=== PATIENT | female | born 1975 | race Caucasian/White ===

== ENCOUNTER 2017-02-08 12:49 | Inpatient (IN) | payer BC ==
--- NOTE | 2017-02-08 11:23 | PCM.PREANE ---
Preanesthetic Assessment - Anesthesia/Transfusion/Family Hx Anesthesia History: Prior Anesthesia Without Reaction Family History of Anesthesia Reaction: No Transfusion History: No Prior Transfusion(s) - Review of Systems General: Malaise Pulmonary: No Symptoms Cardiovascular: No Symptoms Gastrointestinal: Abdominal pain, Nausea Neurological: No Symptoms Other: Reports: Liver Problems ("auto-immune hepatitis in remission"), Thyroid Problems - Physical Assessment NPO Status Date: 02/07/17 NPO Status Time: 00:00 Pulse: 108 O2 Sat by Pulse Oximetry: 98 Respiratory Rate: 20 Blood Pressure: 128/91 Temperature: 37.2 C Height: 1.63 m Weight: 81.647 kg ASA Class: 2E Mental Status: Alert & Oriented x3 Airway Class: Mallampati = 2 Dentition: Reports: Normal Dentition Thyro-Mental Finger Breadths: 3 Mouth Opening Finger Breadths: 2 ROM/Head Extension: Full Lungs: Clear to auscultation, Normal respiratory effort Cardiovascular: Regular Rate, Regular Rhythm, No Murmurs - Allergies Allergies/Adverse Reactions: Allergies Allergy/AdvReac Type Severity Reaction Status Date / Time acetaminophen [From Tylenol] Allergy Other Verified 11/28/14 10:35 - Anesthesia Plan Pre-Op Medication Ordered: None - Acknowledgements Anesthesia Type Planned: General Anesthesia Pt an Appropriate Candidate for the Planned Anesthesia: Yes Alternatives and Risks of Anesthesia Discussed w Pt/Guardian: Yes Pt/Guardian Understands and Agrees with Anesthesia Plan: Yes PreAnesthesia Questionnaire - SUBSTANCE USE Smoking Status *Q: Unknown Ever Smoked Tobacco Use Within Last Twelve Months: No Second Hand Smoke Exposure: No Days Per Week of Alcohol Use: 0 Number of Drinks Per Day: 1 Total Drinks Per Week: 0 Recreational Drug Use History: No - HOME MEDS Home Medications: Home Meds . [No Known Home Meds] 11/28/14 [History] - CURRENT (IN HOUSE) MEDS Current Meds: Current Medications Cefoxitin Sodium 2 gm/ Premix 50 mls @ 100 mls/hr IV ONETIME ONE Stop: 02/08/17 11:59
[~2017-02-08 12:49] MED LIST: Bupivacaine 0.5%/EPINEPHrine 1:200,000 50 ML MDV INJECT ONE; Ketorolac 30 MG/ML SDV ONE; Lactated Ringers 1,000 ML IV SCH; Lactated Ringers 1,000 ML ONE; Lidocaine 1% with EPINEPHrine 1:100,000 20 ML MDV INJECT ONE; Lidocaine 1%/Sod Bicarbonate in NS 8.4% 1 ML Syringe PRN; Midazolam 1 MG/ML 2 ML SDV ONE; Neostigmine Methylsulfate 10 MG/10 ML MDV ONE; Ondansetron 4 MG/2 ML SDV ONE; Propofol 200 MG/20 ML SDV ONE; Rocuronium 50 MG/5 ML Vial ONE; Scopolamine 1.5 MG Transdermal Patch TOP ONE; Sodium Chloride 0.9% 10 ML Syringe FLUSH PRN; cefOXitin 2 GM in Premix Bag 1 BAG IV ONE; fentaNYL 100 MCG/2 ML SDV IVPUSH PRN; fentaNYL 250 MCG/5 ML SDV ONE
--- NOTE | 2017-02-08 12:49 | PCM.POSTAN ---
POST ANESTHESIA ASSESSMENT - MENTAL STATUS Mental Status: alert, oriented - VITAL SIGNS Pulse Rate: 97 SaO2: 96 Resp Rate: 11 Blood Pressure: 104/80 Temperature: 36.9 C - RESPIRATORY Respiratory Status: respiratory rate WNL, airway patent, O2 saturation stable, supplemental oxygen - CARDIOVASCULAR CV Status: pulse rate WNL, blood pressure stable - GASTROINTESTINAL GI Status: no symptoms - PAIN Pain Score: 0 - POST OP HYDRATION Hydration Status: adequate & stable - OBSERVATIONS Free Text/Narrative:: no anesthesia complications noted
[2017-02-08] MEDS ORDERED: Ketorolac 15 MG/ML SDV IM PRN (12:50)
--- NOTE | 2017-02-08 12:50 | PCM.OPNOTE ---
- General Post-Op/Procedure Note Date of Surgery/Procedure: 02/08/17 Operative Procedure(s): Laparoscopic appendectomy Findings: Acutely inflamed, distended appendix with suppuration in the right lower quadrant. There was a fecalith that fell into the field after stapling spilling a small amount of fecal contents in the area. Pre Op Diagnosis: Acute appendicitis -- delayed presentation Post-Op Diagnosis: Same Anesthesia Technique: General ET tube, Local Primary Surgeon: Ravindra Samaniego Pathology: Appendix EBL in mLs: 3 Complications: None Condition: Good Free Text/Narrative:: After adequate general endotracheal tube anesthesia was obtained the patient's abdomen was prepped and draped in the usual fashion for a laparoscopic appendectomy. A supraumbilical incision was made after local analgesia followed by insertion of a 12 mm camera port. CO2 pneumoperitoneum was obtained. A 5 mm working port was placed in the suprapubic region and in the left lower quadrant after local analgesia. Exploration revealed the findings above. I teased away some mesenteric fat away from the base of the appendix. I then made a window in the meso appendix with the Endo Lexie. I fired the stapler across the base of the appendix and for some reason the fecalith fell out of the appendix spilling a small amount of fecal contents. This was quickly aspirated from the field with irrigation. I fired another load across the base of the appendix to reinforce the appendiceal base. After copiously irrigating out the feel with saline I fired across the appendiceal mesentery and removed the specimen in an Endo Catch through the umbilicus. The area was hemostatic. The fecalith, which was about 6 mm in size was removed by aspiration. The abdomen was decannulated under direct vision with no bleeding from the port sites. I closed the 12 mm camera site with interrupted 0 Vicryl [id number]. The subcutaneous tissues and skin were closed with Vicryl as well. Steri-Strips and gauze were used for the dressing. Insurance Inspector photographs were taken for the patient and for the record.
[2017-02-08] MEDS: Ondansetron 4 MG/2 ML SDV IVPUSH PRN ×2 (13:17→18:12)
[2017-02-08] MEDS ORDERED: Metoclopramide 10 MG/2 ML SDV IVPUSH SCH (13:45)
[2017-02-08] MEDS: Sodium Chloride 0.9% 1,000 ML IV SCH (17:59)
[2017-02-08] MEDS: HYDROmorphone 0.5 MG/0.5 ML Syringe IVPUSH PRN (18:02)
[2017-02-08] MEDS: cefOXitin 2 GM in Premix Bag 1 BAG IV SCH ×2 (18:07→22:37)
[2017-02-08] MEDS: Metoclopramide 10 MG/2 ML SDV IVPUSH PRN (22:32)
[2017-02-09] MEDS: Sodium Chloride 0.9% 1,000 ML IV SCH (04:50)
[2017-02-09] MEDS: cefOXitin 2 GM in Premix Bag 1 BAG IV SCH ×4 (04:50→23:57)
[2017-02-09] MEDS: Pantoprazole 40 MG Tab.CR PO SCH (06:01)
[2017-02-09] MEDS: Ibuprofen 600 MG Tab PO PRN ×3 (07:48→20:51)
[2017-02-09] MEDS ORDERED: Sodium Chloride 0.9% 10 ML Syringe FLUSH PRN (07:56)
--- NOTE | 2017-02-09 08:00 | PCM.SURGPN ---
- General Info Date of Service: 02/09/17 POD#: 1 Functional Status: Reports: pain controlled, tolerating diet, ambulating, urinating - Review of Systems Gastrointestinal: Reports: Nausea, Other (crampy upper abdonial pain, mild nausea) - Patient Data Vitals - most recent: Last Vital Signs Temp 36.9 C 02/09/17 07:48 Pulse 93 02/09/17 06:07 Resp 16 02/09/17 06:07 BP 108/66 02/09/17 06:07 Pulse Ox 93 L 02/09/17 06:07 Weight - most recent: 98.157 kg I&O - last 24 hours: Intake & Output 02/08/17 02/09/17 02/09/17 22:59 06:59 14:59 Intake Total 320 1890 Output Total 1175 Balance 320 715 Lab Results last 24 hrs: Laboratory Results - last 24 hr 02/09/17 Range/Units 05:02 WBC 13.78 H (3.98-10.04) K/mm3 RBC 3.87 L (3.98-5.22) M/mm3 Hgb 11.4 (11.2-15.7) gm/L Hct 34.3 (34.1-44.9) % MCV 88.6 (79.4-94.8) fl MCH 29.5 (25.6-32.2) pg MCHC 33.2 (32.2-35.5) g/dl RDW Std Deviation 44.1 (36.4-46.3) fL Plt Count 202 (182-369) K/mm3 MPV 11.3 (9.4-12.3) fl Neut % (Auto) 83.2 H (34.0-71.1) % Lymph % (Auto) 10.4 L (19.3-51.7) % [place] % (Auto) 6.2 (4.7-12.5) % Eos % (Auto) 0 L (0.7-5.8) Baso % (Auto) 0.1 (0.1-1.2) % Neut # (Auto) 11.45 H (1.56-6.13) K/mm3 Lymph # (Auto) 1.44 (1.18-3.74) K/mm3 [place] # (Auto) 0.86 H (0.24-0.36) K/mm3 Eos # (Auto) 0.00 L (0.04-0.36) K/mm3 Baso # (Auto) 0.01 (0.01-0.08) K/mm3 Med Orders - Current: Current Medications Hydromorphone HCl (Dilaudid) 0.5 mg IVPUSH Q1H PRN PRN Reason: Pain (severe 7-10) Last Admin: 02/08/17 18:02 Dose: 0.5 mg Cefoxitin Sodium 2 gm/ Premix 50 mls @ 100 mls/hr IV Q6H [facility] Last Admin: 02/09/17 04:50 Dose: 100 mls/hr Ibuprofen (Motrin) 600 mg PO Q6H PRN PRN Reason: Fever Last Admin: 02/09/17 07:48 Dose: 600 mg Metoclopramide HCl (Reglan) 5 mg IVPUSH Q6H PRN PRN Reason: Nausea Last Admin: 02/08/17 22:32 Dose: 5 mg Ondansetron HCl (Zofran) 4 mg IVPUSH Q6H PRN PRN Reason: Nausea/Vomiting Last Admin: 02/08/17 18:12 Dose: 4 mg Pantoprazole Sodium (Protonix) 40 mg PO DAILY@0700 [facility] Last Admin: 02/09/17 06:01 Dose: Not Given Sodium Chloride (Saline Flush) 10 ml FLUSH ASDIRECTED PRN PRN Reason: Keep Vein Open Discontinued Medications Fentanyl (Sublimaze) Confirm Administered Dose 250 mcg .ROUTE .STK-MED ONE Stop: 02/08/17 11:41 Fentanyl (Sublimaze) 50 mcg IVPUSH Q5M PRN PRN Reason: PAIN Stop: 02/08/17 18:00 Glycopyrrolate () Confirm Administered Dose 2 mg .ROUTE .STK-MED ONE Stop: 02/08/17 12:29 Cefoxitin Sodium 2 gm/ Premix 50 mls @ 100 mls/hr IV ONETIME ONE Stop: 02/08/17 11:59 Last Admin: 02/08/17 11:30 Dose: 100 mls/hr Lactated Ringer's (Ringers, Lactated) 1,000 mls @ 125 mls/hr IV ASDIRECTED [facility] Stop: 02/08/17 23:00 Last Admin: 02/08/17 11:30 Dose: 125 mls/hr Lactated Ringer's (Ringers, Lactated) Confirm Administered Dose 1,000 mls @ as directed .ROUTE .STK-MED ONE Stop: 02/08/17 12:31 Sodium Chloride (Normal Saline) 1,000 mls @ 125 mls/hr IV ASDIRECTED [facility]FAELA Last Admin: 02/09/17 04:50 Dose: 125 mls/hr Ketorolac Tromethamine (Toradol) Confirm Administered Dose 30 mg .ROUTE .STK- MED ONE Stop: 02/08/17 12:34 Ketorolac Tromethamine (Toradol) 15 mg IM Q6H PRN PRN Reason: Pain Stop: 02/09/17 07:01 Last Admin: 02/08/17 22:32 Dose: 15 mg Lidocaine/Sodium Bicarbonate (Buffered Lidocaine 1% In Ns 8.4%) 0.25 ml .XX ONETIME PRN PRN Reason: Prior to IV Start Stop: 02/08/17 18:00 Metoclopramide HCl (Reglan) 10 mg IVPUSH ONETIME [facility]FAELA Stop: 02/08/17 23:59 Last Admin: 02/08/17 13:46 Dose: 10 mg Midazolam HCl (Versed 1 Mg/Ml) Confirm Administered Dose 2 mg .ROUTE .STK-MED ONE Stop: 02/08/17 11:41 Neostigmine Methylsulfate (Neostigmine Methylsulfate) Confirm Administered Dose 10 mg .ROUTE .STK-MED ONE Stop: 02/08/17 12:29 Ondansetron HCl (Zofran) Confirm Administered Dose 4 mg .ROUTE .STK-MED ONE Stop: 02/08/17 11:41 Propofol (Diprivan 20 Ml) Confirm Administered Dose 200 mg .ROUTE .STK-MED ONE Stop: 02/08/17 11:41 Rocuronium [place] (Zemuron) Confirm Administered Dose 50 mg .ROUTE .STK-MED ONE Stop: 02/08/17 11:41 Scopolamine (Transderm-Scop) 1.5 mg TOP ONETIME ONE Stop: 02/08/17 11:31 Last Admin: 02/08/17 11:38 Dose: 1.5 mg Sodium Chloride (Saline Flush) 10 ml FLUSH ASDIRECTED PRN PRN Reason: Keep Vein Open Stop: 02/08/17 18:00 - Exam Wound/Incisions: dressing dry and intact Abdomen: soft, no tenderness, no distension - Problem List Review Problem List Initiated/Reviewed/Updated: Yes - My Orders Last 24 Hours: Active Orders 24 hr Category Date Time Status Patient Status [ADT] Routine ADT 02/08/17 12:50 Active Ambulate [RC] ASDIRECTED Care 02/08/17 12:50 Active Cooling Warming Measures [RC] ASDIRECTED Care 02/08/17 12:48 Active Head of Bed Elevation [RC] ASDIRECTED Care 02/08/17 12:51 Active Notify Provider [RC] ASDIRECTED Care 02/08/17 12:48 Active Oxygen Therapy [RC] PRN Care 02/08/17 12:50 Active Peripheral IV Care [RC] Q2HR Care 02/08/17 11:19 Active RT Incentive Spirometry [RC] Q1HWA Care 02/08/17 12:50 Active Up ad Ale [RC] ASDIRECTED Care 02/08/17 12:50 Active Up to Chair [RC] ASDIRECTED Care 02/08/17 12:50 Active Verify Patient Consent Obtain [RC] ASDIRECTED Care 02/08/17 11:19 Active Vital Signs [RC] Q4HR Care 02/08/17 12:50 Active Regular Diet [DIET] Diet 02/08/17 Dinner Active HYDROmorphone [Dilaudid] Med 02/08/17 12:50 Active 0.5 mg IVPUSH Q1H PRN Ibuprofen [Motrin] Med 02/08/17 21:42 Active 600 mg PO Q6H PRN Metoclopramide [Reglan] Med 02/08/17 21:40 Active 5 mg IVPUSH Q6H PRN Ondansetron [Zofran] Med 02/08/17 12:50 Active 4 mg IVPUSH Q6H PRN Pantoprazole [ProTONIX] Med 02/09/17 07:00 Active 40 mg PO DAILY@0700 Sodium Chloride 0.9% [Saline Flush] Med 02/09/17 07:56 Ordered 10 ml FLUSH ASDIRECTED PRN cefOXitin [Mefoxin in Dextrose,Iso-Osm 2 GM/50 ML] 2 gm Med 02/08/17 17:30 Active Premix Bag 1 bag IV Q6H Medication Administration Instruction [OM.PC] Routine Oth 02/08/17 11:19 Ordered Peripheral IV Discontinue [OM.PC] Routine Oth 02/09/17 07:55 Ordered Peripheral IV Insertion Adult [OM.PC] Routine Oth 02/08/17 11:19 Ordered Saline Lock Insert [OM.PC] Routine Oth 02/09/17 07:56 Ordered Resuscitation Status Routine Resus Stat 02/08/17 12:50 Ordered Medication Orders Hydromorphone HCl (Dilaudid) 0.5 mg IVPUSH Q1H PRN PRN Reason: Pain (severe 7-10) Last Admin: 02/08/17 18:02 Dose: 0.5 mg Cefoxitin Sodium 2 gm/ Premix 50 mls @ 100 mls/hr IV Q6H [facility] Last Admin: 02/09/17 04:50 Dose: 100 mls/hr Infusion: 02/08/17 23:07 Dose: 100 mls/hr Admin: 02/08/17 22:37 Dose: 100 mls/hr Infusion: 02/08/17 18:37 Dose: 100 mls/hr Admin: 02/08/17 18:07 Dose: 100 mls/hr Ibuprofen (Motrin) 600 mg PO Q6H PRN PRN Reason: Fever Last Admin: 02/09/17 07:48 Dose: 600 mg Metoclopramide HCl (Reglan) 5 mg IVPUSH Q6H PRN PRN Reason: Nausea Last Admin: 02/08/17 22:32 Dose: 5 mg Ondansetron HCl (Zofran) 4 mg IVPUSH Q6H PRN PRN Reason: Nausea/Vomiting Last Admin: 02/08/17 18:12 Dose: 4 mg Admin: 02/08/17 13:17 Dose: 4 mg Pantoprazole Sodium (Protonix) 40 mg PO DAILY@0700 [facility] Last Admin: 02/09/17 06:01 Dose: Not Given Sodium Chloride (Saline Flush) 10 ml FLUSH ASDIRECTED PRN PRN Reason: Keep Vein Open - Assessment Assessment (Free Text/Narrative):: imp: Stable. WBC 13K. - Plan Plan (Free Text/Narrative):: plan: IV antibiotics. Perhaps home by Tuesday AM. See orders.
--- NOTE | 2017-02-09 08:22 | PCM48HPAN ---
Post Anesthesia Note - EVALUATION WITHIN 48HRS OF ANESTHETIC Vital Signs in Normal Range: Yes Patient Participated in Evaluation: Yes Respiratory Function Stable: Yes Airway Patent: Yes Cardiovascular Function Stable: Yes Hydration Status Stable: Yes Pain Control Satisfactory: Yes (taking po meds) Nausea and Vomiting Control Satisfactory: Yes Mental Status Recovered: Yes
[2017-02-09] MEDS: HYDROmorphone 0.5 MG/0.5 ML Syringe IVPUSH PRN (11:47)
[2017-02-09] MEDS: Ondansetron 4 MG/2 ML SDV IVPUSH PRN ×2 (14:36→20:51)
[2017-02-09] MEDS: Metoclopramide 10 MG/2 ML SDV IVPUSH PRN (18:51)
[2017-02-10] MEDS: Ibuprofen 600 MG Tab PO PRN ×3 (03:53→23:31)
[2017-02-10] MEDS: cefOXitin 2 GM in Premix Bag 1 BAG IV SCH ×4 (05:39→23:22)
[2017-02-10] MEDS: Pantoprazole 40 MG Tab.CR PO SCH ×2 (05:39→06:06)
[2017-02-10] MEDS: HYDROmorphone 0.5 MG/0.5 ML Syringe IVPUSH PRN (06:19)
[2017-02-10] MEDS: Metoclopramide 10 MG/2 ML SDV IVPUSH PRN ×2 (06:19→12:09)
[2017-02-10] MEDS ORDERED: Magnesium Hydroxide 400 MG/5 ML Susp 30 ML Cup PO PRN (08:00)
--- NOTE | 2017-02-10 08:06 | PCM.SURGPN ---
- General Info Date of Service: 02/10/17 POD#: 2 Functional Status: Reports: pain controlled, tolerating diet, ambulating, urinating - Review of Systems HEENT: Reports: headaches (which was present before surgery) Gastrointestinal: Reports: Abdominal pain (but less than yesterday), Constipation, Flatus - Patient Data Vitals - most recent: Last Vital Signs Temp 36.8 C 02/10/17 07:44 Pulse 65 02/10/17 07:44 Resp 14 02/10/17 07:44 BP 117/67 02/10/17 07:44 Pulse Ox 96 02/10/17 07:44 Weight - most recent: 97.205 kg I&O - last 24 hours: Intake & Output 02/09/17 02/10/17 02/10/17 22:59 06:59 14:59 Intake Total 1130 550 Output Total 1900 700 Balance -770 -150 Med Orders - Current: Current Medications Hydromorphone HCl (Dilaudid) 0.5 mg IVPUSH Q1H PRN PRN Reason: Pain (severe 7-10) Last Admin: 02/10/17 06:19 Dose: 0.5 mg Cefoxitin Sodium 2 gm/ Premix 50 mls @ 100 mls/hr IV Q6H RAFAELA Last Admin: 02/10/17 05:39 Dose: 100 mls/hr Ibuprofen (Motrin) 600 mg PO Q6H PRN PRN Reason: Fever Last Admin: 02/10/17 03:53 Dose: 600 mg Magnesium Hydroxide (Milk Of Magnesia) 30 ml PO BID PRN PRN Reason: constipatiion Metoclopramide HCl (Reglan) 5 mg IVPUSH Q6H PRN PRN Reason: Nausea Last Admin: 02/10/17 06:19 Dose: 5 mg Ondansetron HCl (Zofran) 4 mg IVPUSH Q6H PRN PRN Reason: Nausea/Vomiting Last Admin: 02/09/17 20:51 Dose: 4 mg Pantoprazole Sodium (Protonix) 40 mg PO DAILY@0700 [facility] Last Admin: 02/10/17 06:06 Dose: Not Given Sodium Chloride (Saline Flush) 10 ml FLUSH ASDIRECTED PRN PRN Reason: Keep Vein Open Discontinued Medications Bupivacaine HCl/Epinephrine [place] (Marcaine 0.5%/Epinephrine 1:200,000) 0 ml INJECT ONETIME ONE Stop: 02/08/17 11:20 Last Admin: 02/08/17 11:55 Dose: 10 ml Fentanyl (Sublimaze) Confirm Administered Dose 250 mcg .ROUTE .STK-MED ONE Stop: 02/08/17 11:41 Fentanyl (Sublimaze) 50 mcg IVPUSH Q5M PRN PRN Reason: PAIN Stop: 02/08/17 18:00 Glycopyrrolate () Confirm Administered Dose 2 mg .ROUTE .STK-MED ONE Stop: 02/08/17 12:29 Cefoxitin Sodium 2 gm/ Premix 50 mls @ 100 mls/hr IV ONETIME ONE Stop: 02/08/17 11:59 Last Admin: 02/08/17 11:30 Dose: 100 mls/hr Lactated Ringer's (Ringers, Lactated) 1,000 mls @ 125 mls/hr IV ASDIRECTED [facility] Stop: 02/08/17 23:00 Last Admin: 02/08/17 11:30 Dose: 125 mls/hr Lactated Ringer's (Ringers, Lactated) Confirm Administered Dose 1,000 mls @ as directed .ROUTE .STK-MED ONE Stop: 02/08/17 12:31 Sodium Chloride (Normal Saline) 1,000 mls @ 125 mls/hr IV ASDIRECTED [facility] Last Admin: 02/09/17 04:50 Dose: 125 mls/hr Ketorolac Tromethamine (Toradol) Confirm Administered Dose 30 mg .ROUTE .STK- MED ONE Stop: 02/08/17 12:34 Ketorolac Tromethamine (Toradol) 15 mg IM Q6H PRN PRN Reason: Pain Stop: 02/09/17 07:01 Last Admin: 02/08/17 22:32 Dose: 15 mg Lidocaine/Epinephrine (Xylocaine 1% With Epinephrine 1:100,000) 0 ml INJECT ONETIME ONE Stop: 02/08/17 11:20 Last Admin: 02/08/17 11:55 Dose: 10 ml Lidocaine/Sodium Bicarbonate (Buffered Lidocaine 1% In Ns 8.4%) 0.25 ml .XX ONETIME PRN PRN Reason: Prior to IV Start Stop: 02/08/17 18:00 Metoclopramide HCl (Reglan) 10 mg IVPUSH ONETIME [facility] Stop: 02/08/17 23:59 Last Admin: 02/08/17 13:46 Dose: 10 mg Midazolam HCl (Versed 1 Mg/Ml) Confirm Administered Dose 2 mg .ROUTE .STK-MED ONE Stop: 02/08/17 11:41 Neostigmine Methylsulfate (Neostigmine Methylsulfate) Confirm Administered Dose 10 mg .ROUTE .STK-MED ONE Stop: 02/08/17 12:29 Ondansetron HCl (Zofran) Confirm Administered Dose 4 mg .ROUTE .STK-MED ONE Stop: 02/08/17 11:41 Propofol (Diprivan 20 Ml) Confirm Administered Dose 200 mg .ROUTE .STK-MED ONE Stop: 02/08/17 11:41 Rocuronium [place] (Zemuron) Confirm Administered Dose 50 mg .ROUTE .STK-MED ONE Stop: 02/08/17 11:41 Scopolamine (Transderm-Scop) 1.5 mg TOP ONETIME ONE Stop: 02/08/17 11:31 Last Admin: 02/08/17 11:38 Dose: 1.5 mg Sodium Chloride (Saline Flush) 10 ml FLUSH ASDIRECTED PRN PRN Reason: Keep Vein Open Stop: 02/08/17 18:00 - Exam Wound/Incisions: dressing dry and intact Abdomen: no tenderness - Problem List Review Problem List Initiated/Reviewed/Updated: Yes - My Orders Last 24 Hours: Active Orders 24 hr Category Date Time Status Antiembolic Devices [RC] PER UNIT ROUTINE Care 02/09/17 10:04 Active May Shower [RC] ASDIRECTED Care 02/10/17 07:59 Ordered CBC WITH AUTO DIFF [HEME] Routine Lab 02/10/17 08:01 Ordered Magnesium Hydroxide [Milk of Magnesia] Med 02/10/17 08:00 Ordered 30 ml PO BID PRN Sodium Chloride 0.9% [Saline Flush] Med 02/09/17 07:56 Active 10 ml FLUSH ASDIRECTED PRN Peripheral IV Discontinue [OM.PC] Routine Oth 02/09/17 07:55 Ordered Remove Dressing [OM.PC] Routine Oth 02/10/17 07:59 Ordered Saline Lock Insert [OM.PC] Routine Oth 02/09/17 07:56 Ordered DWAYNE Hose [Antiembolic Hose] [OM.PC] Routine Oth 02/09/17 10:04 Ordered Medication Orders Hydromorphone HCl (Dilaudid) 0.5 mg IVPUSH Q1H PRN PRN Reason: Pain (severe 7-10) Last Admin: 02/10/17 06:19 Dose: 0.5 mg Admin: 02/09/17 11:47 Dose: 0.5 mg Admin: 02/08/17 18:02 Dose: 0.5 mg Cefoxitin Sodium 2 gm/ Premix 50 mls @ 100 mls/hr IV Q6H RAFAELA Last Admin: 02/10/17 05:39 Dose: 100 mls/hr Infusion: 02/10/17 00:27 Dose: 100 mls/hr Admin: 02/09/17 23:57 Dose: 100 mls/hr Infusion: 02/09/17 18:47 Dose: 100 mls/hr Admin: 02/09/17 18:17 Dose: 100 mls/hr Infusion: 02/09/17 12:14 Dose: 100 mls/hr Admin: 02/09/17 11:44 Dose: 100 mls/hr Infusion: 02/09/17 05:20 Dose: 100 mls/hr Admin: 02/09/17 04:50 Dose: 100 mls/hr Infusion: 02/08/17 23:07 Dose: 100 mls/hr Admin: 02/08/17 22:37 Dose: 100 mls/hr Infusion: 02/08/17 18:37 Dose: 100 mls/hr Admin: 02/08/17 18:07 Dose: 100 mls/hr Ibuprofen (Motrin) 600 mg PO Q6H PRN PRN Reason: Fever Last Admin: 02/10/17 03:53 Dose: 600 mg Admin: 02/09/17 20:51 Dose: 600 mg Admin: 02/09/17 14:37 Dose: 600 mg Admin: 02/09/17 07:48 Dose: 600 mg Magnesium Hydroxide (Milk Of Magnesia) 30 ml PO BID PRN PRN Reason: constipatiion Metoclopramide HCl (Reglan) 5 mg IVPUSH Q6H PRN PRN Reason: Nausea Last Admin: 02/10/17 06:19 Dose: 5 mg Admin: 02/09/17 18:51 Dose: 5 mg Admin: 02/08/17 22:32 Dose: 5 mg Ondansetron HCl (Zofran) 4 mg IVPUSH Q6H PRN PRN Reason: Nausea/Vomiting Last Admin: 02/09/17 20:51 Dose: 4 mg Admin: 02/09/17 14:36 Dose: 4 mg Admin: 02/08/17 18:12 Dose: 4 mg Admin: 02/08/17 13:17 Dose: 4 mg Pantoprazole Sodium (Protonix) 40 mg PO DAILY@0700 [facility] Last Admin: 02/10/17 06:06 Dose: Admin: 02/10/17 05:39 Dose: 40 mg Admin: 02/09/17 06:01 Dose: Not Given Sodium Chloride (Saline Flush) 10 ml FLUSH ASDIRECTED PRN PRN Reason: Keep Vein Open - Assessment Assessment (Free Text/Narrative):: improving - Plan Plan (Free Text/Narrative):: Shower today, and milk of magnesia for constipation. CBC in a.m.
[2017-02-10] MEDS: Ondansetron 4 MG/2 ML SDV IVPUSH PRN (09:28)
[2017-02-10] MEDS ORDERED: Ketorolac 30 MG/ML SDV IVPUSH PRN (17:44)
[2017-02-10] MEDS: Promethazine 25 MG in Sodium Chloride 0.9% 50 ML IV PRN (18:09)
[2017-02-11] MEDS: cefOXitin 2 GM in Premix Bag 1 BAG IV SCH ×4 (05:07→22:43)
[2017-02-11] MEDS: Pantoprazole 40 MG Tab.CR PO SCH ×2 (05:09→10:15)
[2017-02-11] MEDS: Ibuprofen 600 MG Tab PO PRN ×3 (05:12→20:18)
--- NOTE | 2017-02-11 11:19 | PCM.SURGPN ---
- General Info Date of Service: 02/11/17 POD#: 3 Functional Status: Reports: pain controlled, tolerating diet, ambulating, urinating - Review of Systems HEENT: Reports: headaches (these are chronic and have been with her for years. They are part of her low back pain syndrome) Musculoskeletal: Reports: back pain - Patient Data Vitals - most recent: Last Vital Signs Temp 37.1 C 02/11/17 08:00 Pulse 75 02/11/17 08:00 Resp 20 02/11/17 08:00 BP 117/65 02/11/17 08:00 Pulse Ox 98 02/11/17 08:00 Weight - most recent: 96.57 kg I&O - last 24 hours: Intake & Output 02/10/17 02/11/17 02/11/17 22:59 06:59 14:59 Intake Total 1050 1450 0 Output Total 1000 1400 Balance 50 50 0 Med Orders - Current: Current Medications Hydromorphone HCl (Dilaudid) 0.5 mg IVPUSH Q1H PRN PRN Reason: Pain (severe 7-10) Last Admin: 02/10/17 06:19 Dose: 0.5 mg Cefoxitin Sodium 2 gm/ Premix 50 mls @ 100 mls/hr IV Q6H [facility] Last Admin: 02/11/17 10:52 Dose: 100 mls/hr Promethazine HCl 25 mg/ Sodium (Chloride) 51 mls @ 100 mls/hr IV Q6H PRN PRN Reason: Nausea/Vomiting Last Admin: 02/10/17 18:09 Dose: 100 mls/hr Ibuprofen (Motrin) 600 mg PO Q6H PRN PRN Reason: Fever Last Admin: 02/11/17 05:12 Dose: 600 mg Ketorolac Tromethamine (Toradol) 30 mg IVPUSH Q6H PRN PRN Reason: Pain Last Admin: 02/10/17 18:09 Dose: 30 mg Magnesium Hydroxide (Milk Of Magnesia) 30 ml PO BID PRN PRN Reason: constipatiion Metoclopramide HCl (Reglan) 5 mg IVPUSH Q6H PRN PRN Reason: Nausea Last Admin: 02/10/17 12:09 Dose: 5 mg Ondansetron HCl (Zofran) 4 mg IVPUSH Q6H PRN PRN Reason: Nausea/Vomiting Last Admin: 02/10/17 09:28 Dose: 4 mg Pantoprazole Sodium (Protonix) 40 mg PO DAILY@0700 [facility] Last Admin: 02/11/17 10:15 Dose: Not Given Sodium Chloride (Saline Flush) 10 ml FLUSH ASDIRECTED PRN PRN Reason: Keep Vein Open Discontinued Medications Bupivacaine HCl/Epinephrine Bitart (Marcaine 0.5%/Epinephrine 1:200,000) 0 ml INJECT ONETIME ONE Stop: 02/08/17 11:20 Last Admin: 02/08/17 11:55 Dose: 10 ml Fentanyl (Sublimaze) Confirm Administered Dose 250 mcg .ROUTE .STK-MED ONE Stop: 02/08/17 11:41 Fentanyl (Sublimaze) 50 mcg IVPUSH Q5M PRN PRN Reason: PAIN Stop: 02/08/17 18:00 Glycopyrrolate () Confirm Administered Dose 2 mg .ROUTE .STK-MED ONE Stop: 02/08/17 12:29 Cefoxitin Sodium 2 gm/ Premix 50 mls @ 100 mls/hr IV ONETIME ONE Stop: 02/08/17 11:59 Last Admin: 02/08/17 11:30 Dose: 100 mls/hr Lactated Ringer's (Ringers, Lactated) 1,000 mls @ 125 mls/hr IV ASDIRECTED [facility] Stop: 02/08/17 23:00 Last Admin: 02/08/17 11:30 Dose: 125 mls/hr Lactated Ringer's (Ringers, Lactated) Confirm Administered Dose 1,000 mls @ as directed .ROUTE .STK-MED ONE Stop: 02/08/17 12:31 Sodium Chloride (Normal Saline) 1,000 mls @ 125 mls/hr IV ASDIRECTED [facility] Last Admin: 02/09/17 04:50 Dose: 125 mls/hr Ketorolac Tromethamine (Toradol) Confirm Administered Dose 30 mg .ROUTE .STK- MED ONE Stop: 02/08/17 12:34 Ketorolac Tromethamine (Toradol) 15 mg IM Q6H PRN PRN Reason: Pain Stop: 02/09/17 07:01 Last Admin: 02/08/17 22:32 Dose: 15 mg Lidocaine/Epinephrine (Xylocaine 1% With Epinephrine 1:100,000) 0 ml INJECT ONETIME ONE Stop: 02/08/17 11:20 Last Admin: 02/08/17 11:55 Dose: 10 ml Lidocaine/Sodium Bicarbonate (Buffered Lidocaine 1% In Ns 8.4%) 0.25 ml .XX ONETIME PRN PRN Reason: Prior to IV Start Stop: 02/08/17 18:00 Metoclopramide HCl (Reglan) 10 mg IVPUSH ONETIME [facility] Stop: 02/08/17 23:59 Last Admin: 02/08/17 13:46 Dose: 10 mg Midazolam HCl (Versed 1 Mg/Ml) Confirm Administered Dose 2 mg .ROUTE .STK-MED ONE Stop: 02/08/17 11:41 Neostigmine Methylsulfate (Neostigmine Methylsulfate) Confirm Administered Dose 10 mg .ROUTE .STK-MED ONE Stop: 02/08/17 12:29 Ondansetron HCl (Zofran) Confirm Administered Dose 4 mg .ROUTE .STK-MED ONE Stop: 02/08/17 11:41 Propofol (Diprivan 20 Ml) Confirm Administered Dose 200 mg .ROUTE .STK-MED ONE Stop: 02/08/17 11:41 Rocuronium [place] (Zemuron) Confirm Administered Dose 50 mg .ROUTE .STK-MED ONE Stop: 02/08/17 11:41 Scopolamine (Transderm-Scop) 1.5 mg TOP ONETIME ONE Stop: 02/08/17 11:31 Last Admin: 02/08/17 11:38 Dose: 1.5 mg Sodium Chloride (Saline Flush) 10 ml FLUSH ASDIRECTED PRN PRN Reason: Keep Vein Open Stop: 02/08/17 18:00 - Exam Wound/Incisions: dressing dry and intact Quality Assessment: skin breakdown General: oriented, cooperative Abdomen: soft, no tenderness, no distension - Problem List Review Problem List Initiated/Reviewed/Updated: Yes - My Orders Last 24 Hours: Active Orders 24 hr Category Date Time Status Ketorolac [Toradol] Med 02/10/17 17:44 Active 30 mg IVPUSH Q6H PRN Magnesium Citrate [Citrate of Magnesia] Med 02/11/17 11:17 Once See Dose Instructions PO ONETIME ONE Promethazine [Phenergan] 25 mg Med 02/10/17 17:42 Active Sodium Chloride 0.9% [Normal Saline] 50 ml IV Q6H Medication Orders Hydromorphone HCl (Dilaudid) 0.5 mg IVPUSH Q1H PRN PRN Reason: Pain (severe 7-10) Last Admin: 02/10/17 06:19 Dose: 0.5 mg Admin: 02/09/17 11:47 Dose: 0.5 mg Admin: 02/08/17 18:02 Dose: 0.5 mg Cefoxitin Sodium 2 gm/ Premix 50 mls @ 100 mls/hr IV Q6H [facility] Last Admin: 02/11/17 10:52 Dose: 100 mls/hr Infusion: 02/11/17 05:37 Dose: 100 mls/hr Admin: 02/11/17 05:07 Dose: 100 mls/hr Infusion: 02/10/17 23:52 Dose: 100 mls/hr Admin: 02/10/17 23:22 Dose: 100 mls/hr Infusion: 02/10/17 18:04 Dose: 100 mls/hr Admin: 02/10/17 17:34 Dose: 100 mls/hr Infusion: 02/10/17 11:13 Dose: 100 mls/hr Admin: 02/10/17 10:43 Dose: 100 mls/hr Infusion: 02/10/17 06:09 Dose: 100 mls/hr Admin: 02/10/17 05:39 Dose: 100 mls/hr Infusion: 02/10/17 00:27 Dose: 100 mls/hr Admin: 02/09/17 23:57 Dose: 100 mls/hr Infusion: 02/09/17 18:47 Dose: 100 mls/hr Admin: 02/09/17 18:17 Dose: 100 mls/hr Infusion: 02/09/17 12:14 Dose: 100 mls/hr Admin: 02/09/17 11:44 Dose: 100 mls/hr Infusion: 02/09/17 05:20 Dose: 100 mls/hr Admin: 02/09/17 04:50 Dose: 100 mls/hr Infusion: 02/08/17 23:07 Dose: 100 mls/hr Admin: 02/08/17 22:37 Dose: 100 mls/hr Infusion: 02/08/17 18:37 Dose: 100 mls/hr Admin: 02/08/17 18:07 Dose: 100 mls/hr Promethazine HCl 25 mg/ Sodium (Chloride) 51 mls @ 100 mls/hr IV Q6H PRN PRN Reason: Nausea/Vomiting Last Admin: 02/10/17 18:09 Dose: 100 mls/hr Ibuprofen (Motrin) 600 mg PO Q6H PRN PRN Reason: Fever Last Admin: 02/11/17 05:12 Dose: 600 mg Admin: 02/10/17 23:31 Dose: 600 mg Admin: 02/10/17 12:08 Dose: 600 mg Admin: 02/10/17 03:53 Dose: 600 mg Admin: 02/09/17 20:51 Dose: 600 mg Admin: 02/09/17 14:37 Dose: 600 mg Admin: 02/09/17 07:48 Dose: 600 mg Ketorolac Tromethamine (Toradol) 30 mg IVPUSH Q6H PRN PRN Reason: Pain Last Admin: 02/10/17 18:09 Dose: 30 mg Magnesium Hydroxide (Milk Of Magnesia) 30 ml PO BID PRN PRN Reason: constipatiion Metoclopramide HCl (Reglan) 5 mg IVPUSH Q6H PRN PRN Reason: Nausea Last Admin: 02/10/17 12:09 Dose: 5 mg Admin: 02/10/17 06:19 Dose: 5 mg Admin: 02/09/17 18:51 Dose: 5 mg Admin: 02/08/17 22:32 Dose: 5 mg Ondansetron HCl (Zofran) 4 mg IVPUSH Q6H PRN PRN Reason: Nausea/Vomiting Last Admin: 02/10/17 09:28 Dose: 4 mg Admin: 02/09/17 20:51 Dose: 4 mg Admin: 02/09/17 14:36 Dose: 4 mg Admin: 02/08/17 18:12 Dose: 4 mg Admin: 02/08/17 13:17 Dose: 4 mg Pantoprazole Sodium (Protonix) 40 mg PO DAILY@0700 [facility] Last Admin: 02/11/17 10:15 Dose: Not Given Admin: 02/11/17 05:09 Dose: 40 mg Admin: 02/10/17 06:06 Dose: Admin: 02/10/17 05:39 Dose: 40 mg Admin: 02/09/17 06:01 Dose: Not Given Sodium Chloride (Saline Flush) 10 ml FLUSH ASDIRECTED PRN PRN Reason: Keep Vein Open - Assessment Assessment (Free Text/Narrative):: doing well - Plan Plan (Free Text/Narrative):: same
[2017-02-11] MEDS ORDERED: Promethazine 25 MG/ML SDV ONE (11:34)
[2017-02-11] MEDS ORDERED: Magnesium Citrate Solution 296 ML Bottle PO ONE (11:45)
[2017-02-11] MEDS: Promethazine 25 MG in Sodium Chloride 0.9% 50 ML IV PRN (11:58)
[2017-02-12] MEDS: Pantoprazole 40 MG Tab.CR PO SCH ×2 (05:41→06:58)
[2017-02-12] MEDS: cefOXitin 2 GM in Premix Bag 1 BAG IV SCH (05:41)
[2017-02-12 05:43] VITALS: BP 105/65
--- NOTE | 2017-02-12 06:31 | PCM.SURGPN ---
- General Info Functional Status: Reports: pain controlled, tolerating diet, ambulating, urinating - Review of Systems HEENT: Reports: headaches (improved) Gastrointestinal: Reports: No symptoms, Flatus, Other (many loose stools after magnesium citrate given yesterday) - Patient Data Vitals - most recent: Last Vital Signs Temp 36.9 C 02/12/17 03:00 Pulse 74 02/12/17 03:00 Resp 14 02/12/17 03:00 BP 105/65 02/12/17 03:00 Pulse Ox 96 02/12/17 03:00 Weight - most recent: 96.298 kg I&O - last 24 hours: Intake & Output 02/11/17 02/11/17 02/12/17 14:59 22:59 06:59 Intake Total 240 1080 100 Output Total 500 Balance 240 580 100 Med Orders - Current: Current Medications Hydromorphone HCl (Dilaudid) 0.5 mg IVPUSH Q1H PRN PRN Reason: Pain (severe 7-10) Last Admin: 02/10/17 06:19 Dose: 0.5 mg Cefoxitin Sodium 2 gm/ Premix 50 mls @ 100 mls/hr IV Q6H [facility]A Last Admin: 02/12/17 05:41 Dose: 100 mls/hr Promethazine HCl 25 mg/ Sodium (Chloride) 51 mls @ 100 mls/hr IV Q6H PRN PRN Reason: Nausea/Vomiting Last Admin: 02/11/17 11:58 Dose: 100 mls/hr Ibuprofen (Motrin) 600 mg PO Q6H PRN PRN Reason: Fever Last Admin: 02/11/17 20:18 Dose: 600 mg Ketorolac Tromethamine (Toradol) 30 mg IVPUSH Q6H PRN PRN Reason: Pain Last Admin: 02/10/17 18:09 Dose: 30 mg Magnesium Hydroxide (Milk Of Magnesia) 30 ml PO BID PRN PRN Reason: constipatiion Metoclopramide HCl (Reglan) 5 mg IVPUSH Q6H PRN PRN Reason: Nausea Last Admin: 02/10/17 12:09 Dose: 5 mg Ondansetron HCl (Zofran) 4 mg IVPUSH Q6H PRN PRN Reason: Nausea/Vomiting Last Admin: 02/10/17 09:28 Dose: 4 mg Pantoprazole Sodium (Protonix) 40 mg PO DAILY@0700 [facility] Last Admin: 02/12/17 05:41 Dose: 40 mg Sodium Chloride (Saline Flush) 10 ml FLUSH ASDIRECTED PRN PRN Reason: Keep Vein Open Discontinued Medications Bupivacaine HCl/Epinephrine Bitart (Marcaine 0.5%/Epinephrine 1:200,000) 0 ml INJECT ONETIME ONE Stop: 02/08/17 11:20 Last Admin: 02/08/17 11:55 Dose: 10 ml Fentanyl (Sublimaze) Confirm Administered Dose 250 mcg .ROUTE .STK-MED ONE Stop: 02/08/17 11:41 Fentanyl (Sublimaze) 50 mcg IVPUSH Q5M PRN PRN Reason: PAIN Stop: 02/08/17 18:00 Glycopyrrolate () Confirm Administered Dose 2 mg .ROUTE .STK-MED ONE Stop: 02/08/17 12:29 Cefoxitin Sodium 2 gm/ Premix 50 mls @ 100 mls/hr IV ONETIME ONE Stop: 02/08/17 11:59 Last Admin: 02/08/17 11:30 Dose: 100 mls/hr Lactated Ringer's (Ringers, Lactated) 1,000 mls @ 125 mls/hr IV ASDIRECTED [facility] Stop: 02/08/17 23:00 Last Admin: 02/08/17 11:30 Dose: 125 mls/hr Lactated Ringer's (Ringers, Lactated) Confirm Administered Dose 1,000 mls @ as directed .ROUTE .STK-MED ONE Stop: 02/08/17 12:31 Sodium Chloride (Normal Saline) 1,000 mls @ 125 mls/hr IV ASDIRECTED [facility] Last Admin: 02/09/17 04:50 Dose: 125 mls/hr Ketorolac Tromethamine (Toradol) Confirm Administered Dose 30 mg .ROUTE .STK- MED ONE Stop: 02/08/17 12:34 Ketorolac Tromethamine (Toradol) 15 mg IM Q6H PRN PRN Reason: Pain Stop: 02/09/17 07:01 Last Admin: 02/08/17 22:32 Dose: 15 mg Lidocaine/Epinephrine (Xylocaine 1% With Epinephrine 1:100,000) 0 ml INJECT ONETIME ONE Stop: 02/08/17 11:20 Last Admin: 02/08/17 11:55 Dose: 10 ml Lidocaine/Sodium Bicarbonate (Buffered Lidocaine 1% In Ns 8.4%) 0.25 ml .XX ONETIME PRN PRN Reason: Prior to IV Start Stop: 02/08/17 18:00 Magnesium Citrate (Citrate Of Magnesia) 296 ml PO ONETIME ONE Stop: 02/11/17 11:46 Last Admin: 02/11/17 11:40 Dose: 296 ml Metoclopramide HCl (Reglan) 10 mg IVPUSH ONETIME [facility] Stop: 02/08/17 23:59 Last Admin: 02/08/17 13:46 Dose: 10 mg Midazolam HCl (Versed 1 Mg/Ml) Confirm Administered Dose 2 mg .ROUTE .STK-MED ONE Stop: 02/08/17 11:41 Neostigmine Methylsulfate (Neostigmine Methylsulfate) Confirm Administered Dose 10 mg .ROUTE .STK-MED ONE Stop: 02/08/17 12:29 Ondansetron HCl (Zofran) Confirm Administered Dose 4 mg .ROUTE .STK-MED ONE Stop: 02/08/17 11:41 Promethazine HCl (Phenergan) Confirm Administered Dose 25 mg .ROUTE .STK-MED ONE Stop: 02/11/17 11:35 Last Admin: 02/11/17 12:02 Dose: Not Given Propofol (Diprivan 20 Ml) Confirm Administered Dose 200 mg .ROUTE .STK-MED ONE Stop: 02/08/17 11:41 Rocuronium [place] (Zemuron) Confirm Administered Dose 50 mg .ROUTE .STK-MED ONE Stop: 02/08/17 11:41 Scopolamine (Transderm-Scop) 1.5 mg TOP ONETIME ONE Stop: 02/08/17 11:31 Last Admin: 02/08/17 11:38 Dose: 1.5 mg Sodium Chloride (Saline Flush) 10 ml FLUSH ASDIRECTED PRN PRN Reason: Keep Vein Open Stop: 02/08/17 18:00 - Exam Abdomen: soft, no tenderness, no distension - Problem List & Annotations (1) Appendicitis, acute, with peritonitis SNOMED Code(s): 671972174 Code(s): K35.3 - ACUTE APPENDICITIS WITH LOCALIZED PERITONITIS Status: Resolved Priority: High Current Visit: Yes - Problem List Review Problem List Initiated/Reviewed/Updated: Yes - My Orders Last 24 Hours: Active Orders 24 hr Category Date Time Status Ready for Discharge [RC] PER UNIT ROUTINE Care 02/12/17 06:30 Ordered Medication Orders Hydromorphone HCl (Dilaudid) 0.5 mg IVPUSH Q1H PRN PRN Reason: Pain (severe 7-10) Last Admin: 02/10/17 06:19 Dose: 0.5 mg Admin: 02/09/17 11:47 Dose: 0.5 mg Admin: 02/08/17 18:02 Dose: 0.5 mg Cefoxitin Sodium 2 gm/ Premix 50 mls @ 100 mls/hr IV Q6H [facility] Last Admin: 02/12/17 05:41 Dose: 100 mls/hr Infusion: 02/11/17 23:13 Dose: 100 mls/hr Admin: 02/11/17 22:43 Dose: 100 mls/hr Infusion: 02/11/17 17:56 Dose: 100 mls/hr Admin: 02/11/17 17:26 Dose: 100 mls/hr Infusion: 02/11/17 11:22 Dose: 100 mls/hr Admin: 02/11/17 10:52 Dose: 100 mls/hr Infusion: 02/11/17 05:37 Dose: 100 mls/hr Admin: 02/11/17 05:07 Dose: 100 mls/hr Infusion: 02/10/17 23:52 Dose: 100 mls/hr Admin: 02/10/17 23:22 Dose: 100 mls/hr Infusion: 02/10/17 18:04 Dose: 100 mls/hr Admin: 02/10/17 17:34 Dose: 100 mls/hr Infusion: 02/10/17 11:13 Dose: 100 mls/hr Admin: 02/10/17 10:43 Dose: 100 mls/hr Infusion: 02/10/17 06:09 Dose: 100 mls/hr Admin: 02/10/17 05:39 Dose: 100 mls/hr Infusion: 02/10/17 00:27 Dose: 100 mls/hr Admin: 02/09/17 23:57 Dose: 100 mls/hr Infusion: 02/09/17 18:47 Dose: 100 mls/hr Admin: 02/09/17 18:17 Dose: 100 mls/hr Infusion: 02/09/17 12:14 Dose: 100 mls/hr Admin: 02/09/17 11:44 Dose: 100 mls/hr Infusion: 02/09/17 05:20 Dose: 100 mls/hr Admin: 02/09/17 04:50 Dose: 100 mls/hr Infusion: 02/08/17 23:07 Dose: 100 mls/hr Admin: 02/08/17 22:37 Dose: 100 mls/hr Infusion: 02/08/17 18:37 Dose: 100 mls/hr Admin: 02/08/17 18:07 Dose: 100 mls/hr Promethazine HCl 25 mg/ Sodium (Chloride) 51 mls @ 100 mls/hr IV Q6H PRN PRN Reason: Nausea/Vomiting Last Admin: 02/11/17 11:58 Dose: 100 mls/hr Infusion: 02/10/17 18:40 Dose: 100 mls/hr Admin: 02/10/17 18:09 Dose: 100 mls/hr Ibuprofen (Motrin) 600 mg PO Q6H PRN PRN Reason: Fever Last Admin: 02/11/17 20:18 Dose: 600 mg Admin: 02/11/17 11:41 Dose: 600 mg Admin: 02/11/17 05:12 Dose: 600 mg Admin: 02/10/17 23:31 Dose: 600 mg Admin: 02/10/17 12:08 Dose: 600 mg Admin: 02/10/17 03:53 Dose: 600 mg Admin: 02/09/17 20:51 Dose: 600 mg Admin: 02/09/17 14:37 Dose: 600 mg Admin: 02/09/17 07:48 Dose: 600 mg Ketorolac Tromethamine (Toradol) 30 mg IVPUSH Q6H PRN PRN Reason: Pain Last Admin: 02/10/17 18:09 Dose: 30 mg Magnesium Hydroxide (Milk Of Magnesia) 30 ml PO BID PRN PRN Reason: constipatiion Metoclopramide HCl (Reglan) 5 mg IVPUSH Q6H PRN PRN Reason: Nausea Last Admin: 02/10/17 12:09 Dose: 5 mg Admin: 02/10/17 06:19 Dose: 5 mg Admin: 02/09/17 18:51 Dose: 5 mg Admin: 02/08/17 22:32 Dose: 5 mg Ondansetron HCl (Zofran) 4 mg IVPUSH Q6H PRN PRN Reason: Nausea/Vomiting Last Admin: 02/10/17 09:28 Dose: 4 mg Admin: 02/09/17 20:51 Dose: 4 mg Admin: 02/09/17 14:36 Dose: 4 mg Admin: 02/08/17 18:12 Dose: 4 mg Admin: 02/08/17 13:17 Dose: 4 mg Pantoprazole Sodium (Protonix) 40 mg PO DAILY@0700 [facility] Last Admin: 02/12/17 05:41 Dose: 40 mg Admin: 02/11/17 10:15 Dose: Not Given Admin: 02/11/17 05:09 Dose: 40 mg Admin: 02/10/17 06:06 Dose: Admin: 02/10/17 05:39 Dose: 40 mg Admin: 02/09/17 06:01 Dose: Not Given Sodium Chloride (Saline Flush) 10 ml FLUSH ASDIRECTED PRN PRN Reason: Keep Vein Open - Assessment Assessment (Free Text/Narrative):: ready for - Plan Plan (Free Text/Narrative):: discharge today
--- NOTE | 2017-02-12 06:34 | PCM.DCSUM1 ---
Discharge Summary - Hospital Course Free Text/Narrative:: This patient underwent an uncomplicated laparoscopic appendectomy. She had some local fecal contamination and was placed in the hospital for IV antibiotics. She remained afebrile and her white count fell towards normal. After a few days she met all discharge criteria and was discharged to home. She is to be continued on outpatient by mouth antibiotics. - Discharge Data Discharge Date: 02/12/17 Discharge Disposition: Home, Self-Care 01 Condition: Good - Discharge Diagnosis/Problem(s) (1) Appendicitis, acute, with peritonitis SNOMED Code(s): 286296488 ICD Code: K35.3 - ACUTE APPENDICITIS WITH LOCALIZED PERITONITIS Status: Resolved Priority: High Current Visit: Yes - Patient Summary/Data Operative Procedure(s) Performed: Laparoscopic appendectomy Complications: none Consults: none Recommended Follow-up Testing/Procedures: one week Planned Operative Procedure(s) after DC: none Hospital Course: See above. - Patient Instructions Diet: Usual Diet as Tolerated Activity: As Tolerated, Rest and Relax Today Driving: May Drive Today Showering/Bathing: May Shower Wound/Incision Care: Keep Operative Site/Wound Site Clean and Dry Notify Provider of: Fever, Increased Pain, Drainage - Discharge Plan Home Medications: Home Meds Esomeprazole Magnesium [Nexium 24Hr] 1 tab PO DAILY 02/08/17 [History] Ibuprofen [Motrin] 800 mg PO Q6H PRN 02/08/17 [History] Patient Handouts: Laparoscopic Appendectomy, Adult, Care After, [id number], Peritonitis Referrals: Ravindra Samaniego MD [Physician] - 02/17/17 (routine postop check, patient to call next week for appointment) - Discharge Summary/Plan Comment DC Time >30 min.: No Discharge Summary/Plan Comment: Postoperative instructions were explained verbally to the patient. She requested Phenergan for nausea. I will add this to her antibiotic regimen of Bactrim DS and Flagyl, which I will continue for 7 days. - Patient Data Vitals - Most Recent: Last Vital Signs Temp 36.9 C 02/12/17 03:00 Pulse 74 02/12/17 03:00 Resp 14 02/12/17 03:00 BP 105/65 02/12/17 03:00 Pulse Ox 96 02/12/17 03:00 Weight - Most Recent: 96.298 kg I&O - Last 24 hours: Intake & Output 02/11/17 02/11/17 02/12/17 14:59 22:59 06:59 Intake Total 240 1080 100 Output Total 500 Balance 240 580 100 Med Orders - Current: Current Medications Hydromorphone HCl (Dilaudid) 0.5 mg IVPUSH Q1H PRN PRN Reason: Pain (severe 7-10) Last Admin: 02/10/17 06:19 Dose: 0.5 mg Cefoxitin Sodium 2 gm/ Premix 50 mls @ 100 mls/hr IV Q6H [facility] Last Admin: 02/12/17 05:41 Dose: 100 mls/hr Promethazine HCl 25 mg/ Sodium (Chloride) 51 mls @ 100 mls/hr IV Q6H PRN PRN Reason: Nausea/Vomiting Last Admin: 02/11/17 11:58 Dose: 100 mls/hr Ibuprofen (Motrin) 600 mg PO Q6H PRN PRN Reason: Fever Last Admin: 02/11/17 20:18 Dose: 600 mg Ketorolac Tromethamine (Toradol) 30 mg IVPUSH Q6H PRN PRN Reason: Pain Last Admin: 02/10/17 18:09 Dose: 30 mg Magnesium Hydroxide (Milk Of Magnesia) 30 ml PO BID PRN PRN Reason: constipatiion Metoclopramide HCl (Reglan) 5 mg IVPUSH Q6H PRN PRN Reason: Nausea Last Admin: 02/10/17 12:09 Dose: 5 mg Ondansetron HCl (Zofran) 4 mg IVPUSH Q6H PRN PRN Reason: Nausea/Vomiting Last Admin: 02/10/17 09:28 Dose: 4 mg Pantoprazole Sodium (Protonix) 40 mg PO DAILY@0700 [facility] Last Admin: 02/12/17 05:41 Dose: 40 mg Sodium Chloride (Saline Flush) 10 ml FLUSH ASDIRECTED PRN PRN Reason: Keep Vein Open Discontinued Medications Bupivacaine HCl/Epinephrine Bitart (Marcaine 0.5%/Epinephrine 1:200,000) 0 ml INJECT ONETIME ONE Stop: 02/08/17 11:20 Last Admin: 02/08/17 11:55 Dose: 10 ml Fentanyl (Sublimaze) Confirm Administered Dose 250 mcg .ROUTE .STK-MED ONE Stop: 02/08/17 11:41 Fentanyl (Sublimaze) 50 mcg IVPUSH Q5M PRN PRN Reason: PAIN Stop: 02/08/17 18:00 Glycopyrrolate () Confirm Administered Dose 2 mg .ROUTE .ST-MED ONE Stop: 02/08/17 12:29 Cefoxitin Sodium 2 gm/ Premix 50 mls @ 100 mls/hr IV ONETIME ONE Stop: 02/08/17 11:59 Last Admin: 02/08/17 11:30 Dose: 100 mls/hr Lactated Ringer's (Ringers, Lactated) 1,000 mls @ 125 mls/hr IV ASDIRECTED [facility] Stop: 02/08/17 23:00 Last Admin: 02/08/17 11:30 Dose: 125 mls/hr Lactated Ringer's (Ringers, Lactated) Confirm Administered Dose 1,000 mls @ as directed .ROUTE .[facility] ONE Stop: 02/08/17 12:31 Sodium Chloride (Normal Saline) 1,000 mls @ 125 mls/hr IV ASDIRECTED [facility] Last Admin: 02/09/17 04:50 Dose: 125 mls/hr Ketorolac Tromethamine (Toradol) Confirm Administered Dose 30 mg .ROUTE .[facility] ONE Stop: 02/08/17 12:34 Ketorolac Tromethamine (Toradol) 15 mg IM Q6H PRN PRN Reason: Pain Stop: 02/09/17 07:01 Last Admin: 02/08/17 22:32 Dose: 15 mg Lidocaine/Epinephrine (Xylocaine 1% With Epinephrine 1:100,000) 0 ml INJECT ONETIME ONE Stop: 02/08/17 11:20 Last Admin: 02/08/17 11:55 Dose: 10 ml Lidocaine/Sodium Bicarbonate (Buffered Lidocaine 1% In Ns 8.4%) 0.25 ml .XX ONETIME PRN PRN Reason: Prior to IV Start Stop: 02/08/17 18:00 Magnesium Citrate (Citrate Of Magnesia) 296 ml PO ONETIME ONE Stop: 02/11/17 11:46 Last Admin: 02/11/17 11:40 Dose: 296 ml Metoclopramide HCl (Reglan) 10 mg IVPUSH ONETIME [facility] Stop: 02/08/17 23:59 Last Admin: 02/08/17 13:46 Dose: 10 mg Midazolam HCl (Versed 1 Mg/Ml) Confirm Administered Dose 2 mg .ROUTE .STK-MED ONE Stop: 02/08/17 11:41 Neostigmine Methylsulfate (Neostigmine Methylsulfate) Confirm Administered Dose 10 mg .ROUTE .STK-MED ONE Stop: 02/08/17 12:29 Ondansetron HCl (Zofran) Confirm Administered Dose 4 mg .ROUTE .STK-MED ONE Stop: 02/08/17 11:41 Promethazine HCl (Phenergan) Confirm Administered Dose 25 mg .ROUTE .STK-MED ONE Stop: 02/11/17 11:35 Last Admin: 02/11/17 12:02 Dose: Not Given Propofol (Diprivan 20 Ml) Confirm Administered Dose 200 mg .ROUTE .STK-MED ONE Stop: 02/08/17 11:41 Rocuronium [place] (Zemuron) Confirm Administered Dose 50 mg .ROUTE .STK-MED ONE Stop: 02/08/17 11:41 Scopolamine (Transderm-Scop) 1.5 mg TOP ONETIME ONE Stop: 02/08/17 11:31 Last Admin: 02/08/17 11:38 Dose: 1.5 mg Sodium Chloride (Saline Flush) 10 ml FLUSH ASDIRECTED PRN PRN Reason: Keep Vein Open Stop: 02/08/17 18:00 *Q Meaningful Use (DIS) - VTE *Q VTE Criteria *Q: - Stroke *Q Stroke Criteria *Q: - AMI *Q AMI Criteria *Q:
--- NOTE | 2017-02-12 07:19 | PCM.HP ---
H&P History of Present Illness - General Date of Service: 02/08/17 Admit Problem/Dx: acute appendicitis Source of Information: Patient History Limitations: Reports: No Limitations - History of Present Illness Initial Comments - Free Text/Narative: 40-year-old female presented with abdominal discomfort. The walk-in clinic, provider ordered a CT scan, which was remarkable for acute appendicitis. She had an associated leukocytosis, and I was asked to see her for an appendectomy. Abdomen Pain Score (Numeric/FACES): 5 - Related Data Allergies/Adverse Reactions: Allergies Allergy/AdvReac Type Severity Reaction Status Date / Time acetaminophen [From Tylenol] AdvReac Other Verified 02/09/17 11:49 Home Medications: Home Meds Esomeprazole Magnesium [Nexium 24Hr] 1 tab PO DAILY 02/08/17 [History] Ibuprofen [Motrin] 800 mg PO Q6H PRN 02/08/17 [History] Past Medical History Gastrointestinal History: Reports: Hepatitis Other Gastrointestinal History: auto immune hepatitis WO[employer]TER History: Reports: Neurological History: Reports: Migraines - Past Surgical History HEENT Surgical History: Reports: Tonsillectomy GI Surgical History: Reports: Appendectomy, Cholecystectomy Female Surgical History: Reports: Hysterectomy Social & Family History - Tobacco Use Smoking Status *Q: Current Every Day Smoker Years of Tobacco use: 20 Packs/Tins Daily: 1 Used Tobacco, but Quit: No Second Hand Smoke Exposure: No - Alcohol Use Days Per Week of Alcohol Use: 0 Number of Drinks Per Day: 1 Total Drinks Per Week: 0 - Recreational Drug Use Recreational Drug Use: No H&P Review of Systems - Review of Systems: Review Of Systems: ROS reveals no pertinent complaints other than HPI. Exam - Exam Exam: See Below - Vital Signs Vital Signs: Last Vital Signs Temp 36.9 C 02/12/17 03:00 Pulse 74 02/12/17 03:00 Resp 14 02/12/17 03:00 BP 105/65 02/12/17 03:00 Pulse Ox 96 02/12/17 03:00 Weight: 96.298 kg - Exam General: Alert, Oriented, Cooperative HEENT: EOMI, Hearing Intact Neck: Supple, Trachea Midline Lungs: Clear to Auscultation, Normal Respiratory Effort Cardiovascular: Regular Rate, Regular Rhythm, Normal S1, Normal S2 Abdomen: Normal Bowel Sounds, Soft, McBurney's Sign (Female) Exam: Deferred Rectal (Female) Exam: Deferred Back Exam: Normal Inspection, Full Range of Motion Extremities: Normal Inspection, Normal Pulses Skin: Warm, Dry, Intact Neuro Extensive - Mental Status: Alert, Oriented x3, Normal Mood/Affect, Normal Cognition, Memory Intact Psychiatric: Alert, Normal Affect, Normal Mood - Patient Data Result Diagrams: 02/10/17 08:55 *Q Meaningful Use (ADM) - VTE *Q VTE Criteria *Q: - Stroke *Q Stroke Criteria *Q: - AMI *Q AMI Criteria *Q: - Problem List (1) Appendicitis, acute, with peritonitis SNOMED Code(s): 763246363 ICD Code: K35.3 - ACUTE APPENDICITIS WITH LOCALIZED PERITONITIS Status: Resolved Priority: High Current Visit: Yes Problem List Initiated/Reviewed/Updated: Yes Orders Last 24hrs: Active Orders 24 hr Category Date Time Status Ready for Discharge [RC] PER UNIT ROUTINE Care 02/12/17 06:30 Active Medication Orders Hydromorphone HCl (Dilaudid) 0.5 mg IVPUSH Q1H PRN PRN Reason: Pain (severe 7-10) Last Admin: 02/10/17 06:19 Dose: 0.5 mg Admin: 02/09/17 11:47 Dose: 0.5 mg Admin: 02/08/17 18:02 Dose: 0.5 mg Cefoxitin Sodium 2 gm/ Premix 50 mls @ 100 mls/hr IV Q6H [facility] Last Admin: 02/12/17 05:41 Dose: 100 mls/hr Infusion: 02/11/17 23:13 Dose: 100 mls/hr Admin: 02/11/17 22:43 Dose: 100 mls/hr Infusion: 02/11/17 17:56 Dose: 100 mls/hr Admin: 02/11/17 17:26 Dose: 100 mls/hr Infusion: 02/11/17 11:22 Dose: 100 mls/hr Admin: 02/11/17 10:52 Dose: 100 mls/hr Infusion: 02/11/17 05:37 Dose: 100 mls/hr Admin: 02/11/17 05:07 Dose: 100 mls/hr Infusion: 02/10/17 23:52 Dose: 100 mls/hr Admin: 02/10/17 23:22 Dose: 100 mls/hr Infusion: 02/10/17 18:04 Dose: 100 mls/hr Admin: 02/10/17 17:34 Dose: 100 mls/hr Infusion: 02/10/17 11:13 Dose: 100 mls/hr Admin: 02/10/17 10:43 Dose: 100 mls/hr Infusion: 02/10/17 06:09 Dose: 100 mls/hr Admin: 02/10/17 05:39 Dose: 100 mls/hr Infusion: 02/10/17 00:27 Dose: 100 mls/hr Admin: 02/09/17 23:57 Dose: 100 mls/hr Infusion: 02/09/17 18:47 Dose: 100 mls/hr Admin: 02/09/17 18:17 Dose: 100 mls/hr Infusion: 02/09/17 12:14 Dose: 100 mls/hr Admin: 02/09/17 11:44 Dose: 100 mls/hr Infusion: 02/09/17 05:20 Dose: 100 mls/hr Admin: 02/09/17 04:50 Dose: 100 mls/hr Infusion: 02/08/17 23:07 Dose: 100 mls/hr Admin: 02/08/17 22:37 Dose: 100 mls/hr Infusion: 02/08/17 18:37 Dose: 100 mls/hr Admin: 02/08/17 18:07 Dose: 100 mls/hr Promethazine HCl 25 mg/ Sodium (Chloride) 51 mls @ 100 mls/hr IV Q6H PRN PRN Reason: Nausea/Vomiting Last Admin: 02/11/17 11:58 Dose: 100 mls/hr Infusion: 02/10/17 18:40 Dose: 100 mls/hr Admin: 02/10/17 18:09 Dose: 100 mls/hr Ibuprofen (Motrin) 600 mg PO Q6H PRN PRN Reason: Fever Last Admin: 02/11/17 20:18 Dose: 600 mg Admin: 02/11/17 11:41 Dose: 600 mg Admin: 02/11/17 05:12 Dose: 600 mg Admin: 02/10/17 23:31 Dose: 600 mg Admin: 02/10/17 12:08 Dose: 600 mg Admin: 02/10/17 03:53 Dose: 600 mg Admin: 02/09/17 20:51 Dose: 600 mg Admin: 02/09/17 14:37 Dose: 600 mg Admin: 02/09/17 07:48 Dose: 600 mg Ketorolac Tromethamine (Toradol) 30 mg IVPUSH Q6H PRN PRN Reason: Pain Last Admin: 02/10/17 18:09 Dose: 30 mg Magnesium Hydroxide (Milk Of Magnesia) 30 ml PO BID PRN PRN Reason: constipatiion Metoclopramide HCl (Reglan) 5 mg IVPUSH Q6H PRN PRN Reason: Nausea Last Admin: 02/10/17 12:09 Dose: 5 mg Admin: 02/10/17 06:19 Dose: 5 mg Admin: 02/09/17 18:51 Dose: 5 mg Admin: 02/08/17 22:32 Dose: 5 mg Ondansetron HCl (Zofran) 4 mg IVPUSH Q6H PRN PRN Reason: Nausea/Vomiting Last Admin: 02/10/17 09:28 Dose: 4 mg Admin: 02/09/17 20:51 Dose: 4 mg Admin: 02/09/17 14:36 Dose: 4 mg Admin: 02/08/17 18:12 Dose: 4 mg Admin: 02/08/17 13:17 Dose: 4 mg Pantoprazole Sodium (Protonix) 40 mg PO DAILY@0700 RAFAELA Last Admin: 02/12/17 06:58 Dose: Admin: 02/12/17 05:41 Dose: 40 mg Admin: 02/11/17 10:15 Dose: Not Given Admin: 02/11/17 05:09 Dose: 40 mg Admin: 02/10/17 06:06 Dose: Admin: 02/10/17 05:39 Dose: 40 mg Admin: 02/09/17 06:01 Dose: Not Given Sodium Chloride (Saline Flush) 10 ml FLUSH ASDIRECTED PRN PRN Reason: Keep Vein Open Assessment/Plan Comment:: imp: Acute appendicitis. Delayed presentation by 4 days. This can be associated with an increased risk of local contamination. I explained this to the patient and I also told her that inpatient admission for IV antibiotic will be likely. plan: Laparoscopic appendectomy. The benefits, and risks of the procedure as well as the alternatives were explained to the patient and her . She agreed to have me proceed as soon as possible.
== END 2017-02-12 08:25 | disposition home or self-care (01) | DRG 225 ==
LOC: JD.SDS 12:49 → JD.MS 12:50 → JD.SDS 13:43
PROVIDERS: ADMIT Surgery; ATTEND Surgery
PROC: 0DTJ4ZZ Resection of Appendix, Percutaneous Endoscopic Approach (ICD-10-PCS; principal; 2017-02-08)
DX: K35.3 Acute appendicitis with localized peritonitis (principal); Z88.6 Allergy status to analgesic agent; F17.200 Nicotine dependence, unspecified, uncomplicated
CPT/HCPCS: 00840; 36415; 85025; 88304; 88304-26; A9270-GY; J0694; J1170; J1885; J2250; J2405; J2550; J2704; J2710; J2765; J3010; J7040; J7050; J7120

== ENCOUNTER 2019-06-13 05:59 | Emergency (ER) | payer BC ==
--- NOTE | 2019-06-13 06:19 | EDM.PDOC ---
ED HPI GENERAL MEDICAL PROBLEM - General Chief Complaint: Back Pain or Injury Stated Complaint: LOWER BACK PAIN Time Seen by Provider: 06/13/19 06:07 - History of Present Illness INITIAL COMMENTS - FREE TEXT/NARRATIVE: 43-year-old female presents emergency room with back pain. This pain has been ongoing problem over the last several weeks. This really began bad the last few nights. Patient denies any trauma or injury. She states she had disc disease this child. She's had no loss of bowel or bladder control and she has no pain going down into her legs she was seen at the walk-in clinic several weeks ago for this and was started on Flexeril. Initially she took it 3 times a day for about 3 days did not notice much benefit from it and has used it intermittently since then she was given 15 has 1 remaining. She has not had any fevers or chills no burning or frequency with urination. The pain is worse if she stands too long or if she sits too long. The pain seems to worsen with change of position either going to sitting or going to standing can be aggravating factors as she walks the pain just continues to get worse. However, sitting makes it worse - Related Data Allergies Allergy/AdvReac Type Severity Reaction Status Date / Time acetaminophen [From Tylenol] AdvReac Other Verified 06/13/19 06:06 Home Meds: Home Meds Cyclobenzaprine [Flexeril] 10 mg PO TID PRN 06/13/19 [History] Ibuprofen/Diphenhydramine Cit [Ibuprofen PM Caplet] 2 tab PO ONCALL PRN [History] Naproxen [Naprosyn] 500 mg PO Q12HR #30 tab 06/13/19 [Rx] Orphenadrine [Norflex] 100 mg PO BID #20 tab 06/13/19 [Rx] Promethazine [Phenergan] 25 mg PO Q6H PRN #5 tab 06/13/19 [Rx] oxyCODONE 5 mg PO Q6H PRN #5 tab 06/13/19 [Rx] Past Medical History Gastrointestinal History: Reports: Hepatitis Other Gastrointestinal History: auto immune hepatitis - Past Surgical History GI Surgical History: Reports: Cholecystectomy ED ROS GENERAL - Review of Systems Review Of Systems: See Below Constitutional: Reports: No Symptoms Cardiovascular: Reports: No Symptoms GI/Abdominal: Reports: No Symptoms : Reports: No Symptoms Musculoskeletal: Reports: Back Pain Skin: Reports: No Symptoms Neurological: Reports: No Symptoms ED EXAM,LOWER BACK PAIN/INJURY - Physical Exam Exam: See Below Exam Limited By: No Limitations General Appearance: Alert, No Apparent Distress Respiratory/Chest: No Respiratory Distress, Lungs Clear, Normal Breath Sounds Cardiovascular: Regular Rate, Rhythm, No Edema, No Murmur Back Exam: Vertebral Tenderness (He has midline tenderness right over L5 and into the sacrum. She also has paraspinous tenderness much worse on the left compared to the right). No: CVA Tenderness (L), CVA Tenderness (R) Course - Re-Assessments/Exams Free Text/Narrative Re-Assessment/Exam: 06/13/19 07:10 With midline discomfort I went ahead and obtained a lumbar series doesn't show anything acute she does have spondylolisthesis at L5-S1 mild degenerative changes elsewhere decreased disc space and the lower thoracic vertebrae and she has some loss of her lordotic curve. From how she describes her symptoms I cannot exclude spinal stenosis albeit I don't think that's likely. However, I have recommended that she reestablish with a local physician and strong consideration for an MRI be obtained for non-discogenic back pain if she does not improve. At this point the Flexeril did not help we will try Norflex. We'll give her prescription for Norflex and Naprosyn as they're both twice daily. We'll also give her some oxycodone IR 5 mg #5 1/2-1 every 6 hours as needed. Also give some Phenergan as the opioids do tend to cause nausea for her. Departure - Departure Time of Disposition: 07:11 Disposition: Home, Self-Care 01 Clinical Impression: Low back pain - Discharge Information Prescriptions: Naproxen [Naprosyn] 500 mg PO Q12HR #30 tab Orphenadrine [Norflex] 100 mg PO BID #20 tab oxyCODONE 5 mg PO Q6H PRN #5 tab PRN Reason: Pain (Severe 7-10) Promethazine [Phenergan] 25 mg PO Q6H PRN #5 tab PRN Reason: Nausea/Vomiting Referrals: PCP,None [Primary Care Provider] - Additional Instructions: Return to the emergency room with any questions problems worsening symptoms. Take medications as we discussed and as prescribed. Do not take the Flexeril. This is been replaced with Norflex one twice daily Do not use ibuprofen with the Naprosyn. Follow-up in the Hospital clinic early this next week for recheck. [phone]
[2019-06-13 07:52] VITALS: BP 131/85; PULSE 90
== END 2019-06-13 07:30 | disposition home or self-care (01) ==
LOC: JD.ED 05:59
DX: M54.5 Low back pain (principal); Z90.49 Acquired absence of other specified parts of digestive tract; Z88.6 Allergy status to analgesic agent
CPT/HCPCS: 72100; 99283; 99283-25

== ENCOUNTER 2024-12-07 07:59 | Emergency (ER) | payer BC ==
[2024-12-07 08:39] LABS: BASOPHILS ABSOLUTE AUTO 0.1 K/mm3 (0.0-0.2); BASOPHILS PERCENT AUTO 0.6 % (0.0-1.0); EOSINOPHILS ABSOLUTE AUTO 0.1 K/mm3 (0.0-0.4); EOSINOPHILS PERCENT AUTO 1.2 % (0.0-6.0); HEMATOCRIT 42.8 % (37.0-47.0); HEMOGLOBIN 13.8 gm/dl (12.0-16.0); IMMATURE GRAN ABSOLUTE AUTO 0.04 K/mm3 (0.00-0.05); IMMATURE GRAN PERCENT AUTO 0.5 % (0.0-0.4); LYMPHOCYTES ABSOLUTE AUTO 2.3 K/mm3 (1.0-4.8); LYMPHOCYTES PERCENT AUTO 26.5 % (24.0-44.0); MEAN CORPUSCULAR HEMOGLOBIN 28.9 pg (28.0-32.0); MEAN CORPUSCULAR HGB CONC 32.2 g/dl (32.0-36.0); MEAN CORPUSCULAR VOLUME 89.5 fl (83.0-99.0); MEAN PLATELET VOLUME 10.7 fl (9.4-12.3); MONOCYTES ABSOLUTE AUTO 0.4 K/mm3 (0.0-0.8); MONOCYTES PERCENT AUTO 4.3 % (0.0-8.0); NEUTROPHILS ABSOLUTE AUTO 5.8 K/mm3 (1.8-7.7); NEUTROPHILS PERCENT AUTO 66.9 % (41.0-71.0); PLATELET COUNT,PLT 261 K/mm3 (150-400); RED BLOOD CELL COUNT 4.78 M/mm3 (4.10-5.30); WHITE BLOOD CELL COUNT,WBC 8.63 K/mm3 (3.9-11.3)
[2024-12-07 09:11] LABS: A/G RATIO 0.8 (1-2); ALANINE AMINOTRANSFERASE,ALT 91 U/L (14-59); ALBUMIN 3.7 g/dl (3.4-5.0); ALKALINE PHOSPHATASE 97 U/L (46-116); BILIRUBIN TOTAL 0.6 mg/dL (0.2-1.0); BLOOD UREA NITROGEN,BUN 11 mg/dL (7-18); BUN/CREATININE RATIO 12.2 (14-18); CALCIUM 9.4 mg/dL (8.5-10.1); CARBON DIOXIDE,CO2 24 mEq/L (21-32); CHLORIDE,CL 102 mEq/L (98-107); CREATININE 0.9 mg/dL (0.55-1.02); EST CRCL DRUG DOSING (CG) 61.17 mL/min; ESTIMATED GFR 77 mL/min (>60); GLUCOSE RANDOM 135 mg/dL (70-99); PROTEIN TOTAL,TP 8.5 g/dl (6.4-8.2); SODIUM,NA 137 mEq/L (136-145)
[2024-12-07 09:14] LABS: TROPONIN I HIGH SENSITIVITY < 4 pg/mL (<=51)
[2024-12-07 09:15] LABS: ASPARTATE AMNIOTRANSFERASE,AST 73 U/L (15-37)
[2024-12-07 09:46] LABS: TSH 1.901 uIU/mL (0.358-3.74)
[2024-12-07] MEDS: Sodium Chloride 0.9% 100 ML IV SCH (09:51)
[2024-12-07] MEDS: Sodium Chloride 0.9% 10 ML Syringe FLUSH PRN (09:51)
[2024-12-07] MEDS: Iopamidol 755 Mg/ML 100 ML Bottle IVPUSH ONE (09:51)
[2024-12-07] MEDS: methylPREDNISolone Sodium Succinate 125 MG/2 ML SDV IVPUSH ONE (11:26)
[2024-12-07] MEDS: diphenhydrAMINE 50 MG/ML SDV IVPUSH ONE (11:27)
[2024-12-07] MEDS: Alum Hydrox/Mag Hydrox/Simeth 30 ML, Lidocaine 2% 15 ML PO ONE (12:09)
[2024-12-07] MEDS: Sodium Chloride 0.9% 1,000 ML IV ONE (12:09)
[2024-12-07 12:19] LABS: APPEARANCE,URINE CLEAR (Clear); BILIRUBIN,URINE NEGATIVE (Negative); COLOR,URINE YELLOW (Yellow); GLUCOSE,URINE NEGATIVE (Negative); KETONES,URINE NEGATIVE (Negative); LEUKOCYTE ESTERASE,URINE NEGATIVE (Negative); NITRITE,URINE NEGATIVE (Negative); OCCULT BLOOD,URINE TRACE-INTACT (Negative); PH,URINE 6.5 (5.0-8.0); PROTEIN,URINE NEGATIVE (Negative); UROBILINOGEN,URINE 0.2 (0.2-1.0)
[2024-12-07 12:25] LABS: BACTERIA,URINE NOT SEEN /hpf (FEW); MUCUS,URINE NOT SEEN /hpf (FEW); SQUAMOUS EPITHELIAL CELLS,UR 0-5 /hpf (0-5); WBC,URINE NOT SEEN /hpf (0-5)
[2024-12-07 14:10] VITALS: BP 116/64; PULSE 98
== END 2024-12-07 13:15 | disposition home or self-care (01) ==
LOC: JD.ED 07:59
DX: R00.2 Palpitations (principal); Z88.8 Allergy status to other drugs, medicaments and biological substances; Z79.82 Long term (current) use of aspirin; Z90.49 Acquired absence of other specified parts of digestive tract
CPT/HCPCS: 36415; 71045; 71275; 80053; 81001; 83880; 84443; 84484; 85025; 85379; 93005; 93246; 96360; 99285; A9270; J7030; Q9967; 93010; 99283